=== PATIENT | female | born 1995 | race Caucasian/White ===

== ENCOUNTER 2023-08-24 23:32 | Emergency (ER) | payer MEDICAID ==
[~2023-08-24] VITALS: Ht 170.2 cm; Wt 81.6 kg
[~2023-08-24 23:32] MED LIST: ARIP5TAB8 PO
[2023-08-25 00:02] VITALS: BP 111/77; PULSE 111; RESP 18; TEMP 98; O2SAT 98
[2023-08-25 00:43] LABS: FLU A ANTIGEN negative (NEGATIVE)
[2023-08-25 00:46] LABS: FLU B ANTIGEN POSITIVE (NEGATIVE)
[2023-08-25 01:10] LABS: BASOPHILS # (AUTO) 0.1 K/uL (0.00-0.22); BASOPHILS % (AUTO) 0.8 % (0.0-2.0); EOSINOPHILS # (AUTO) 0.4 K/uL (0-0.4); EOSINOPHILS % (AUTO) 3.2 % (0.0-4.0); HEMATOCRIT 32.9 % (36-48); HEMOGLOBIN 11.1 g/dL (12.0-16.0); LYMPHOCYTES # (AUTO) 2.5 K/uL (2.5-16.5); LYMPHOCYTES % (AUTO) 19.2 % (20.5-51.1); MEAN CORPUSCULAR HEMOGLOBIN 26 pg (27-31); MEAN CORPUSCULAR HGB CONC 34 g/dL (33-37); MEAN CORPUSCULAR VOLUME 75.6 fL (80-94); MONOCYTES # (AUTO) 0.9 K/uL (0.8-1.0); MONOCYTES % (AUTO) 6.6 % (1.7-9.3); NEUTROPHILS # (AUTO) 9.2 K/uL (1.8-7.7); NEUTROPHILS % (AUTO) 70.2 % (42.2-75.2); PLATELET COUNT (AUTO) 225 K/uL (140-450); RED BLOOD CELL COUNT(AUTO) 4.36 MIL/uL (4.20-5.40); RED CELL DISTRIBUTION WIDTH 16.7 % (11.6-13.7); WHITE BLOOD COUNT (AUTO) 13.1 K/uL (4.8-10.8)
[2023-08-25 01:32] LABS: ALBUMIN 3.2 g/dL (3.4-5.0); ANION GAP 12.3 (8-16); CALCIUM 8.7 mg/dL (8.5-10.1); CREATININE 0.8 mg/dL (0.6-1.3); POTASSIUM 3.3 mmol/L (3.5-5.1); TOTAL BILIRUBIN 0.2 mg/dL (0.0-1.0); TOTAL PROTEIN, SERUM 8.5 g/dL (6.4-8.2)
[2023-08-25 04:09] VITALS: O2SAT 97
[2023-08-25 04:14] LABS: APPEARANCE,URINE HAZY (CLEAR); BILIRUBIN,URINE NEGATIVE (NEGATIVE); BLOOD, URINE 2+ (NEGATIVE); COLOR,URINE YELLOW (YELLOW); LEUKOCYTE ESTERASE ,URINE 2+ (NEGATIVE); NITRITE, URINE NEGATIVE (NEGATIVE); PROTEIN,URINE NEGATIVE (NEGATIVE); UGLUCOSE NEGATIVE (NEGATIVE); UROBILINOGEN,URINE 0.2 EU/dL (0.2 - 1)
[2023-08-25 04:22] LABS: BACTERIA,URINE 1+ /HPF (None Seen); RBC,URINE 0-5 /HPF (0-5); WBC,URINE TOO MANY TO COUNT /HPF (0-5)
[2023-08-25] MEDS ORDERED: LIDOCAINE MPF 1% 5 ML ONE (04:41)
[2023-08-25] MEDS ORDERED: cefTRIAXone 1,000 MG VIAL ONE (04:41)
[2023-08-25] MEDS: cefTRIAXone 1,000 MG in LIDOCAINE MPF 1% 2.1 ML IM ONE (05:03)
[2023-08-25] MEDS: KETOROLAC 30 MG/ML VIAL IM ONE (05:04)
[2023-08-25] MEDS: ONDANSETRON 4 MG ODT PO ONE (05:05)
[2023-08-25] MEDS: HYDROcodone/APAP 5/325 MG 1 TAB TAB PO ONE (05:05)
[2023-08-25] MEDS ORDERED: AMOX1TAB8 PO (05:52)
[2023-08-25] MEDS ORDERED: ONDA-188 PO (05:52)
[2023-08-25] MEDS ORDERED: ACET-10509 PO (05:52)
[2023-08-25] MEDS ORDERED: IBUP-2213 PO (05:52)
== END 2023-08-25 06:00 | disposition home or self-care (01) ==
LOC: MED 23:32
DX: N12 Tubulo-interstitial nephritis, not specified as acute or chronic (principal); J10.1 Influenza due to other identified influenza virus with other respiratory manifestations; Z20.822 Contact with and (suspected) exposure to COVID-19; Z79.899 Other long term (current) drug therapy
CPT/HCPCS: 36415; 80053; 81001; 81025; 83690; 85025; 87086; 87186; 87426; 87804; 96372; 99284; J0696; J1885; J2001; Q0162

== ENCOUNTER 2023-11-16 05:30 | Emergency (ER) | payer MEDICAID ==
[~2023-11-16] VITALS: Ht 170.2 cm; Wt 67.1 kg
[~2023-11-16 05:30] MED LIST changes: +ACET-10509 PO; +AMOX1TAB8 PO; +IBUP-2213 PO; +ONDA-188 PO
[2023-11-16 05:40] VITALS: BP 150/101; PULSE 114; RESP 18; TEMP 97.9; O2SAT 100
[2023-11-16] MEDS ORDERED: KETOROLAC 60 MG/2 ML VIAL IM ONE (05:58)
[2023-11-16] MEDS: KETOROLAC 60 MG/2 ML VIAL IM ONE (06:01)
[2023-11-16] MEDS: fentaNYL citrate 0.05 MG/ML VIAL IVP ONE (06:45)
[2023-11-16 06:54] LABS: BASOPHILS % (AUTO) 0.5 % (0.0-2.0); EOSINOPHILS # (AUTO) 0.2 K/uL (0-0.4); EOSINOPHILS % (AUTO) 2.4 % (0.0-4.0); HEMATOCRIT 29.3 % (36-48); HEMOGLOBIN 10.2 g/dL (12.0-16.0); LYMPHOCYTES # (AUTO) 2.3 K/uL (2.5-16.5); LYMPHOCYTES % (AUTO) 23.9 % (20.5-51.1); MEAN CORPUSCULAR HEMOGLOBIN 26 pg (27-31); MEAN CORPUSCULAR HGB CONC 35 g/dL (33-37); MEAN CORPUSCULAR VOLUME 74.1 fL (80-94); MONOCYTES # (AUTO) 0.5 K/uL (0.8-1.0); MONOCYTES % (AUTO) 5.6 % (1.7-9.3); NEUTROPHILS # (AUTO) 6.5 K/uL (1.8-7.7); NEUTROPHILS % (AUTO) 67.6 % (42.2-75.2); PLATELET COUNT (AUTO) 272 K/uL (140-450); RED BLOOD CELL COUNT(AUTO) 3.96 MIL/uL (4.20-5.40); RED CELL DISTRIBUTION WIDTH 15.8 % (11.6-13.7); WHITE BLOOD COUNT (AUTO) 9.5 K/uL (4.8-10.8)
[2023-11-16 07:05] LABS: ANION GAP 9.5 (8-16); CREATININE 0.8 mg/dL (0.6-1.3); POTASSIUM 3.5 mmol/L (3.5-5.1)
[2023-11-16] MEDS ORDERED: NAPR-337 PO (09:32)
[2023-11-16 09:44] VITALS: BP 108/75; PULSE 89; RESP 18; TEMP 97.3; O2SAT 100
== END 2023-11-16 09:44 | disposition home or self-care (01) ==
LOC: MED 05:30
DX: M79.602 Pain in left arm (principal); I26.99 Other pulmonary embolism without acute cor pulmonale; Z79.899 Other long term (current) drug therapy
CPT/HCPCS: 36415; 73090; 73110; 73206; 80048; 84703; 85025; 93971; 96372; 96374; 99285; J1885; J3010; Q0092; Q9967